=== PATIENT | female | born 1975 | race African-American/Black ===

== ENCOUNTER 2016-08-22 | Emergency (ER) | payer SELFPAY ==
[~2016-08-22] MED LIST: DICLOFENAC POTA50 M1 PO; HYDROCHLOROTHIA25 M1 PO; LISINOPRIL-HCT1 EAC2 PO; PROTONIX40 M2 PO; TRILEPTAL300 M2 PO; ZITHROMAX250 M1 PO
[2016-08-22] MEDS ORDERED: AUGMENTIN 875-1 EAC2 PO (11:58)
[2016-08-22] MEDS ORDERED: LISINOPRIL-HCT1 EAC3 PO (11:58)
[2016-08-22] MEDS ORDERED: GUAIFENESIN AC473 ML PO (11:58)
== END 2016-08-22 12:13 ==
DX: J18.9 Pneumonia, unspecified organism (principal); J01.00 Acute maxillary sinusitis, unspecified; J01.10 Acute frontal sinusitis, unspecified; I10 Essential (primary) hypertension; Z76.0 Encounter for issue of repeat prescription; K21.9 Gastro-esophageal reflux disease without esophagitis; F17.290 Nicotine dependence, other tobacco product, uncomplicated; Z79.899 Other long term (current) drug therapy